=== PATIENT | female | born 1965 | race Caucasian/White ===

== ENCOUNTER 2021-01-30 17:58 | Emergency (ER) | payer MEDICAID ==
[~2021-01-30] VITALS: Ht 172.7 cm; Wt 109.1 kg
[2021-01-30] MEDS ORDERED: LISI-894 PO (18:11)
[2021-01-30] MEDS ORDERED: SODIUM CHLORIDE 0.9% 1,000 ML IV ONE (18:30)
[2021-01-30 18:44] LABS: BASOPHILS % (AUTO) 0.4 % (0.0-2.0); EOSINOPHILS % (AUTO) 0.5 % (1.0-6.0); HEMOGLOBIN 15.6 g/dL (12.0-16.0); LYMPHOCYTES # (AUTO) 1.9 K/uL (1.0-4.8); LYMPHOCYTES % (AUTO) 22.8 % (22.0-44.0); MEAN CORPUSCULAR HEMOGLOBIN 30.2 pg (26.0-34.0); MEAN CORPUSCULAR HGB CONC 33.9 G/dL (31.0-37.0); MEAN CORPUSCULAR VOLUME 89 fL (80-100); MONOCYTES # (AUTO) 0.4 K/uL (0.1-1.0); MONOCYTES % (AUTO) 4.5 % (2.0-9.0); NEUTROPHILS # (AUTO) 6.2 K/uL (1.8-7.7); NEUTROPHILS % (AUTO) 71.8 % (40.0-70.0); PLATELET COUNT (AUTO) 177 K/uL (150-450); RED BLOOD CELL COUNT(AUTO) 5.16 MIL/uL (4.00-5.20); RED CELL DISTRIBUTION WIDTH 12.5 % (11.5-14.5)
[2021-01-30] MEDS ORDERED: MECLIZINE HCL 25 MG TABLET PO ONE (18:45)
[2021-01-30] MEDS ORDERED: ONDANSETRON HCL 4 MG/2 ML VIAL IVP ONE (18:45)
[2021-01-30 18:55] LABS: ANION GAP 13 mmol/L (8-16); CALCIUM, TOTAL 9.2 mg/dL (8.8-10.5); CARBON DIOXIDE 25 mmol/L (22-29); CHLORIDE 99 mmol/L (98-107); CREATININE 0.78 mg/dL (0.60-1.30); GLOMERULAR FILTR. RATE CALC > 60 mL/min (>60); GLUCOSE,RANDOM 308 mg/dL (70-110); POTASSIUM 3.8 mmol/L (3.5-5.1); SODIUM SERUM 137 mmol/L (136-145); UREA NITROGEN, BLOOD 8 mg/dL (7-18)
[2021-01-30 19:02] LABS: ALANINE AMINOTRANSFERASE 57 U/L (12-78); ALBUMIN 3.7 g/dL (3.4-5.0); ALKALINE PHOSPHATASE 113 U/L (46-116); ASPARTATE AMINOTRANSFERASE 41 U/L (15-37); BILIRUBIN,TOTAL 0.6 mg/dL (0.1-1.0); LIPASE 87 U/L (73-393)
[2021-01-30 20:31] VITALS: BP 158/85
== END 2021-01-30 20:43 | disposition home or self-care (01) ==
LOC: EMS 17:58
DX: R42 Dizziness and giddiness (principal); R11.2 Nausea with vomiting, unspecified; I10 Essential (primary) hypertension
CPT/HCPCS: 36415; 80053; 83690; 84484; 85025; 93005; 96361; 96374; 99284; J2405; J7030

== ENCOUNTER 2021-10-05 08:33 | Emergency (ER) | payer MEDICAID ==
[~2021-10-05] VITALS: Ht 170.2 cm; Wt 111.4 kg
[~2021-10-05 08:33] MED LIST: LISI-894 PO
[2021-10-05 09:00] VITALS: BP 174/89
[2021-10-05] MEDS ORDERED: CEPH500C3 PO (09:43)
[2021-10-05] MEDS ORDERED: SULF-261 PO (09:43)
== END 2021-10-05 09:48 | disposition home or self-care (01) ==
LOC: EDUNIT# 08:33 → EMS 08:36
DX: L03.032 Cellulitis of left toe (principal); E11.9 Type 2 diabetes mellitus without complications; I10 Essential (primary) hypertension
CPT/HCPCS: 82962; 99283

== ENCOUNTER 2021-11-06 22:49 | Emergency (ER) | payer MEDICAID ==
[~2021-11-06] VITALS: Ht 175.3 cm; Wt 109.1 kg
[~2021-11-06 22:49] MED LIST changes: +CEPH500C3 PO; +SULF-261 PO
[2021-11-07] MEDS ORDERED: DiphenhydrAMINE HCL 50 MG/ML VIAL IVP ONE (00:15)
[2021-11-07] MEDS ORDERED: FAMOTIDINE 10 MG/ML 2 ML VIAL IVP ONE (00:15)
[2021-11-07] MEDS ORDERED: MethylPREDNISolone SOD SUCC 125 MG/2 ML VIAL IVP ONE (00:15)
[2021-11-07] MEDS ORDERED: SODIUM CHLORIDE 0.9% 1,000 ML IV ONE (00:15)
[2021-11-07 03:57] VITALS: BP 137/82
[2021-11-07] MEDS ORDERED: PRED-554 PO (04:06)
[2021-11-07] MEDS ORDERED: DIPH25CA85 PO (04:06)
== END 2021-11-07 05:17 | disposition home or self-care (01) ==
LOC: EMS 22:56
DX: T78.40XA Allergy, unspecified, initial encounter (principal); I10 Essential (primary) hypertension; E11.9 Type 2 diabetes mellitus without complications; Z79.899 Other long term (current) drug therapy; Z98.890 Other specified postprocedural states; X58.XXXA Exposure to other specified factors, initial encounter
CPT/HCPCS: 82962; 96361; 96374; 96375; 99291; J1200; J2930; J3490; J7030